=== PATIENT | male | born 1960 | race Caucasian/White ===

== ENCOUNTER 2022-12-15 20:33 | Emergency (ER) | payer SELFPAY ==
[2022-12-15 21:38] LABS: HEMATOCRIT 45.9 % (38.4-49.7); HEMOGLOBIN 15.2 g/dL (12.9-16.9)
== END 2022-12-15 22:24 | disposition home or self-care (01) ==
LOC: JP.ED 20:33
DX: K91.840 Postprocedural hemorrhage of a digestive system organ or structure following a digestive system procedure (principal); C19 Malignant neoplasm of rectosigmoid junction; I25.10 Atherosclerotic heart disease of native coronary artery without angina pectoris; I10 Essential (primary) hypertension; I25.2 Old myocardial infarction; E66.9 Obesity, unspecified; Z88.8 Allergy status to other drugs, medicaments and biological substances; Z79.899 Other long term (current) drug therapy; Z86.010 Personal history of colon polyps; Z68.44 Body mass index [BMI] 60.0-69.9, adult
CPT/HCPCS: 36415; 85014; 85018; 99283

== ENCOUNTER 2022-12-16 09:35 | Emergency (ER) | payer SELFPAY ==
[2022-12-16 09:52] LABS: BASOPHILS ABSOLUTE AUTO 0.06 K/uL (0.00-0.10); BASOPHILS PERCENT AUTO 0.6 % (0.1-1.3); EOSINOPHILS ABSOLUTE AUTO 0.31 K/uL (0.00-0.40); EOSINOPHILS PERCENT AUTO 2.9 % (0.0-5.4); HEMATOCRIT 48.2 % (38.4-49.7); HEMOGLOBIN 15.6 g/dL (12.9-16.9); IMMATURE GRAN ABSOLUTE AUTO 0.03 K/uL (0.00-0.23); IMMATURE GRAN PERCENT AUTO 0.3 % (0.0-0.7); LYMPHOCYTES ABSOLUTE AUTO 1.67 K/uL (0.8-3.3); LYMPHOCYTES PERCENT AUTO 15.9 % (11.4-47.7); MEAN CORPUSCULAR HEMOGLOBIN 29.7 pg (31.6-35.5); MEAN CORPUSCULAR HGB CONC 32.4 g/dL (31.6-35.5); MEAN CORPUSCULAR VOLUME 91.8 fL (81.4-99.0); MONOCYTES ABSOLUTE AUTO 0.86 K/uL (0.20-0.90); MONOCYTES PERCENT AUTO 8.2 % (3.3-12.6); NEUTROPHILS PERCENT AUTO 72.1 % (40.0-78.1); PLATELET COUNT,PLT 282 K/uL (130-375); RED BLOOD CELL COUNT 5.25 M/uL (4.14-5.76); WHITE BLOOD CELL COUNT,WBC 10.5 K/uL (3.2-11.0)
== END 2022-12-16 10:57 | disposition home or self-care (01) ==
LOC: JP.ED 09:35
DX: K92.2 Gastrointestinal hemorrhage, unspecified (principal); I25.10 Atherosclerotic heart disease of native coronary artery without angina pectoris; I10 Essential (primary) hypertension; I25.2 Old myocardial infarction; E66.9 Obesity, unspecified; Z68.44 Body mass index [BMI] 60.0-69.9, adult; Z95.5 Presence of coronary angioplasty implant and graft; Z86.16 Personal history of COVID-19; Z79.82 Long term (current) use of aspirin; Z79.899 Other long term (current) drug therapy; Z88.8 Allergy status to other drugs, medicaments and biological substances
CPT/HCPCS: 36415; 85025; 99283

== ENCOUNTER 2024-02-24 06:21 | Day surgery (SDC) | payer BC ==
[2024-02-24] MEDS ORDERED: Propofol 200 MG/20 ML SDV ONE ×2 (07:27→08:01)
[2024-02-24] MEDS ORDERED: fentaNYL 100 MCG/2 ML SDV ONE (07:27)
[2024-02-24] MEDS: Lactated Ringers 1,000 ML IV SCH (07:41)
== END 2024-02-24 09:25 | disposition home or self-care (01) ==
LOC: JP.SDS 06:21
PROVIDERS: ATTEND Surgery
DX: Z12.11 Encounter for screening for malignant neoplasm of colon (principal); K64.8 Other hemorrhoids; K64.4 Residual hemorrhoidal skin tags; Z86.0100 Personal history of colon polyps, unspecified; N18.31 Chronic kidney disease, stage 3a
CPT/HCPCS: 00811; 45385; J2704; J3010; J7120; 88305